=== PATIENT | female | born 1970 | race Caucasian/White ===

== ENCOUNTER 2017-02-23 15:11 | Emergency (ER) | payer OTHER ==
[2017-02-23 15:52] VITALS: BP 139/82
--- NOTE | 2017-02-23 16:34 | UC ---
Throat Pain/Nasal Hector HPI - HPI Summary HPI Summary: 1.5 WEEKS OF SINUS PRESSURE CONGESTION & RIGHT EAR PAIN. NO FEVER NO SORE THROAT. 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 Hx Last Menstrual Period: 01/22/17 Onset/Duration: Gradual Onset, Lasting Weeks, Still Present Severity: Moderate Cough: Nonproductive Associated Signs & Symptoms: Positive: Hoarseness, Sinus Discomfort, Nasal Discharge, Fever - Epiglottits Risk Factors Epiglottis Risk Factors: Negative - Allergies/Home Medications Allergies/Adverse Reactions: Allergies Allergy/AdvReac Type Severity Reaction Status Date / Time Red Dye Allergy Severe hives/ Verified 02/23/17 15:51 throat closes Latex Allergy Mild Rash Verified 02/23/17 15:51 PMH/Surg Hx/FS Hx/Imm Hx Previously Healthy: Yes Endocrine History Of: Denies: Diabetes Cardiovascular History Of: Denies: Cardiac Disorders, Hypertension Respiratory History Of: Reports: Asthma - Surgical History Surgical History: Yes Surgery Procedure, Year, and Place: ob surgery - Family History Known Family History: Positive: Respiratory Disease - MOTHER COPD - Social History Occupation: Employed Full-time Lives: With Family Alcohol Use: Occasionally Substance Use Type: None Smoking Status (MU): Never Smoked Tobacco Review of Systems Constitutional: Negative Skin: Negative Eyes: Negative ENT: Ear Ache, Nasal Discharge Respiratory: Cough Cardiovascular: Negative Gastrointestinal: Negative Genitourinary: Negative Motor: Negative Neurovascular: Negative Musculoskeletal: Negative Neurological: Negative Psychological: Negative All Other Systems Reviewed And Are Negative: Yes Physical Exam Triage Information Reviewed: Yes Appearance: Well-Appearing, No Pain Distress, Well-Nourished Vital Signs: Initial Vital Signs Temp 99.3 F 02/23/17 15:47 Pulse 82 02/23/17 15:47 Resp 16 02/23/17 15:47 BP 139/82 02/23/17 15:47 Pulse Ox 97 02/23/17 15:47 Vital Signs Reviewed: Yes Eye Exam: Normal ENT: Positive: Pharyngeal erythema, TM bulging, TM dull, TM red - RIGHT, Other: - EDEMA RIGHT EAC Dental Exam: Normal Neck exam: Normal Neck: Positive: Supple, Nontender, No Lymphadenopathy Respiratory Exam: Normal Respiratory: Positive: Chest non-tender, Lungs clear, Normal breath sounds, No respiratory distress, No accessory muscle use Cardiovascular Exam: Normal Cardiovascular: Positive: RRR, No Murmur Abdominal Exam: Normal Abdomen Description: Positive: Nontender, No Organomegaly Musculoskeletal Exam: Normal Musculoskeletal: Positive: Strength Intact Neurological Exam: Normal Psychological Exam: Normal Psychological: Positive: Normal Response To Family Skin Exam: Normal Throat Pain/Nasal Course/Dx - Differential Dx/Diagnosis Differential Diagnosis/HQI/PQRI: Otitis Media, Pharyngitis, Sinusitis, URI Provider Diagnoses: SINUSITIS. RIGHT EAR OTITIS MEDIA/EXTERNA Discharge - Discharge Plan Condition: Stable Disposition: HOME Prescriptions: Amoxicillin/Clavulanate TAB* [Augmentin TAB 875*] 875 mg PO BID #20 tab Ciproflox/Dexameth OTIC.SUSP* [Ciprodex OTIC.SUSP*] 4 drop .SEE ORDER TID #1 btl Patient Education Materials: Sinusitis (ED), Otitis Externa (ED), Otitis Media (ED) Referrals: Ronaldo Nguyen MD [Primary Care Provider] -
== END 2017-02-23 16:30 | disposition home or self-care (01) ==
LOC: UCCORT 15:11
DX: J32.9 Chronic sinusitis, unspecified (principal); H66.91 Otitis media, unspecified, right ear; H60.91 Unspecified otitis externa, right ear; I10 Essential (primary) hypertension; J45.909 Unspecified asthma, uncomplicated
CPT/HCPCS: 99212; G0463

== ENCOUNTER 2017-09-28 11:05 | Emergency (ER) | payer OTHER ==
[2017-09-28 12:09] VITALS: BP 126/85
--- NOTE | 2017-09-28 12:31 | ED ---
Throat Pain/Nasal Congestion - HPI Summary HPI Summary: 47 yr old female with the complaint of sore throat, runny nose, coughing. Onset of symptoms about 2.5 weeks ago. She has been having sinus pressure in frontal and maxillary area progressively worse for the past week with persistent post nasal drip. She states she has a history of asthma but does not feel SOB of wheezing. She has a daughter with URI symptoms that have started more recently. - History of Current Complaint Chief Complaint: UCRespiratory Time Seen by Provider: 09/28/17 12:01 - Allergies/Home Medications Allergies/Adverse Reactions: Allergies Allergy/AdvReac Type Severity Reaction Status Date / Time Red Dye Allergy Severe hives/ Verified 09/28/17 12:03 throat closes Latex Allergy Mild Rash Verified 09/28/17 12:03 Home Medications: Home Medications Albuterol 2.5MG/3ML (0.083%)* [Ventolin 2.5 MG/3 ML NEB.FABIAN*] 2.5 mg INH Q6H PRN 09/28/17 [History Confirmed 09/28/17] [id number] [Nyquil Severe Cold/Flu 5-6.25-10-325 mg/15Ml] 1 liq PO BEDTIME PRN 09/28/17 [History Confirmed 09/28/17] PMH/Surg Hx/FS Hx/Imm Hx Endocrine/Hematology History: Denies: Hx Diabetes Cardiovascular History: Denies: Hx Hypertension Respiratory History: Reports: Hx Asthma - Surgical History Surgery Procedure, Year, and Place: ob surgery Infectious Disease History: No Infectious Disease History: Denies: Traveled Outside the [place] in Last 30 Days - Family History Known Family History: Positive: Respiratory Disease - MOTHER COPD - Social History Alcohol Use: Occasionally Substance Use Type: Reports: None Smoking Status (MU): Never Smoked Tobacco Review of Systems Constitutional: Negative Positive: Nasal Discharge Positive: Shortness Of Breath, Cough All Other Systems Reviewed And Are Negative: Yes Physical Exam Triage Information Reviewed: Yes Vital Signs On Initial Exam: Initial Vitals Temp Pulse Resp BP Pulse Ox 98.7 F 76 20 126/85 100 09/28/17 12:04 09/28/17 12:04 09/28/17 12:04 09/28/17 12:04 09/28/17 12:04 Vital Signs Reviewed: Yes Appearance: Positive: Well-Appearing, No Pain Distress Skin: Positive: Warm Head/Face: Positive: Normal Head/Face Inspection Eyes: Positive: EOMI ENT: Positive: Normal ENT inspection, Pharyngeal erythema, TMs normal, Other - bilateral maxillary and frontal tenderness to percussion.. Negative: Muffled voice, Hoarse voice Neck: Positive: Nontender Respiratory/Lung Sounds: Positive: Clear to Auscultation, Breath Sounds Present Cardiovascular: Positive: RRR. Negative: Murmur Abdomen Description: Positive: Nontender Musculoskeletal: Positive: Strength/ROM Intact Neurological: Positive: Sensory/Motor Intact, Alert, Oriented to Person Place, Time, CN Intact II-III Psychiatric: Positive: Normal - [place] Coma Scale Best Eye Response: 4 - Spontaneous Best Motor Response: 6 - Obeys Commands Best Verbal Response: 5 - Oriented Diagnostics - Vital Signs Vital Signs Temp Pulse Resp BP Pulse Ox 09/28/17 12:04 98.7 F 76 20 126/85 100 - Laboratory Lab Statement: Any lab studies that have been ordered have been reviewed, and results considered in the medical decision making process. EENT Course/Dx - Course Course Of Treatment: 47 yr old with bilateral sinus tendernss. Will cover with Augmentin. DC home - Diagnoses Provider Diagnoses: Sinusitis Discharge - Discharge Plan Condition: Good Disposition: HOME Prescriptions: Amoxicillin/Clavulanate TAB* [Augmentin TAB 875*] 875 mg PO BID #20 tab Patient Education Materials: Sinusitis (ED) Referrals: Ronaldo Nguyen MD [Primary Care Provider] -
== END 2017-09-28 12:35 | disposition home or self-care (01) ==
LOC: UCCORT 11:05
DX: J32.9 Chronic sinusitis, unspecified (principal); J45.909 Unspecified asthma, uncomplicated
CPT/HCPCS: 99212; G0463

== ENCOUNTER 2017-10-27 17:10 | Emergency (ER) | payer OTHER ==
[2017-10-27 18:00] VITALS: BP 149/74
--- NOTE | 2017-10-27 18:27 | ED ---
Throat Pain/Nasal Congestion - HPI Summary HPI Summary: 47 yr old female with Sinus pressure, left ear pain that feels like pressure and popping. The patient complains of cough as well and discomfort in back and ribs with coughing. She states she was on antibiotics last month and got better but now for about a week she has had symptoms. - History of Current Complaint Chief Complaint: UCGeneralIllness Time Seen by Provider: 10/27/17 18:12 - Allergies/Home Medications Allergies/Adverse Reactions: Allergies Allergy/AdvReac Type Severity Reaction Status Date / Time Red Dye Allergy Severe hives/ Verified 10/27/17 18:00 throat closes Latex Allergy Mild Rash Verified 10/27/17 18:00 PMH/Surg Hx/FS Hx/Imm Hx Endocrine/Hematology History: Denies: Hx Diabetes Cardiovascular History: Denies: Hx Hypertension Respiratory History: Reports: Hx Asthma - Surgical History Surgery Procedure, Year, and Place: ob surgery Infectious Disease History: No Infectious Disease History: Denies: Traveled Outside the [place] in Last 30 Days - Family History Known Family History: Positive: Respiratory Disease - MOTHER COPD - Social History Alcohol Use: Occasionally Substance Use Type: Reports: None Smoking Status (MU): Never Smoked Tobacco Review of Systems Positive: Fatigue. Negative: Fever, Chills Positive: Sore Throat, Ear Ache, Nasal Discharge Positive: Cough All Other Systems Reviewed And Are Negative: Yes Physical Exam Triage Information Reviewed: Yes Vital Signs On Initial Exam: Initial Vitals Temp Pulse Resp BP Pulse Ox 98.6 F 70 17 149/74 100 10/27/17 17:56 10/27/17 17:56 10/27/17 17:56 10/27/17 17:56 10/27/17 17:56 Vital Signs Reviewed: Yes Appearance: Positive: Well-Appearing, No Pain Distress Skin: Positive: Warm, Skin Color Reflects Adequate Perfusion Head/Face: Positive: Normal Head/Face Inspection Eyes: Positive: EOMI ENT: Positive: Normal ENT inspection, Pharynx normal, TM dull - left, TM red - left, Sinus tenderness Respiratory/Lung Sounds: Positive: Clear to Auscultation, Breath Sounds Present Cardiovascular: Positive: RRR. Negative: Murmur Abdomen Description: Positive: Nontender Musculoskeletal: Positive: Strength/ROM Intact Neurological: Positive: Sensory/Motor Intact, Alert, Oriented to Person Place, Time, CN Intact II-III Psychiatric: Positive: Normal - [place] Coma Scale Best Eye Response: 4 - Spontaneous Best Motor Response: 6 - Obeys Commands Best Verbal Response: 5 - Oriented Diagnostics - Vital Signs Vital Signs Temp Pulse Resp BP Pulse Ox 10/27/17 17:56 98.6 F 70 17 149/74 100 - Laboratory Lab Statement: Any lab studies that have been ordered have been reviewed, and results considered in the medical decision making process. EENT Course/Dx - Course Course Of Treatment: 47 yr old with left OM and sinusitis. Rx with augmentin. FU with PMD. - Diagnoses Provider Diagnoses: Sinusitis, Otitis media, Hypertension Discharge - Discharge Plan Condition: Good Disposition: HOME Prescriptions: Amoxicillin/Clavulanate TAB* [Augmentin TAB 875*] 875 mg PO BID #20 tab Patient Education Materials: Sinusitis (ED), Otitis Media (ED), Hypertension ( ED) Referrals: Ronaldo Nguyen MD [Primary Care Provider] - 2 Days
== END 2017-10-27 18:24 | disposition home or self-care (01) ==
LOC: UCCORT 17:10
DX: J32.9 Chronic sinusitis, unspecified (principal); H66.92 Otitis media, unspecified, left ear; I10 Essential (primary) hypertension; Z72.89 Other problems related to lifestyle
CPT/HCPCS: 99212; G0463

== ENCOUNTER 2018-03-01 09:03 | Emergency (ER) | payer OTHER ==
[2018-03-01 09:52] VITALS: BP 138/83
--- NOTE | 2018-03-01 10:23 | UC ---
Throat Pain/Nasal Hector HPI - HPI Summary HPI Summary: Pt c/o left eye redness and "itchiness", left ear pain and left side nasal congestion, and sinus pressure. Pt states it has been going on for a week and a half. - History of Current Complaint Chief Complaint: UCGeneralIllness Stated Complaint: EYE/EAR COMPLAINT Time Seen by Provider: 03/01/18 10:11 Hx Obtained From: Patient Hx Last Menstrual Period: 02/13/18 ?: No Onset/Duration: Gradual Onset, Lasting Days - 10, Still Present, Worse Since - onset Severity: Moderate Pain Intensity: 8 Cough: Nonproductive Associated Signs & Symptoms: Positive: Sinus Discomfort - Epiglottits Risk Factors Epiglottis Risk Factors: Negative - Allergies/Home Medications Allergies/Adverse Reactions: Allergies Allergy/AdvReac Type Severity Reaction Status Date / Time MS Red Dye [Red Dye] Allergy Severe hives/ Verified 10/27/17 18:00 throat closes MS Latex [Latex] Allergy Mild Rash Verified 10/27/17 18:00 PMH/Surg Hx/FS Hx/Imm Hx Previously Healthy: Yes - Surgical History Surgical History: Yes Surgery Procedure, Year, and Place: D&C. BONE SPUR RIGHT FOOT. - Family History Known Family History: Positive: Respiratory Disease - MOTHER COPD - Social History Occupation: Employed Full-time Lives: With Family Alcohol Use: Occasionally Substance Use Type: None Smoking Status (MU): Never Smoked Tobacco Have You Smoked in the Last Year: No - Immunization History Most Recent Influenza Vaccination: not this season Review of Systems Constitutional: Fatigue Skin: Negative Eyes: Eye Redness ENT: Sinus Congestion, Sinus Pain/Tenderness Respiratory: Cough Cardiovascular: Negative Gastrointestinal: Negative Genitourinary: Negative Motor: Negative Neurovascular: Negative Musculoskeletal: Negative Neurological: Negative Psychological: Negative Is Patient Immunocompromised?: No All Other Systems Reviewed And Are Negative: Yes Physical Exam Triage Information Reviewed: Yes Appearance: Ill-Appearing Vital Signs: Initial Vital Signs Temp 98.1 F 03/01/18 09:42 Pulse 70 03/01/18 09:42 Resp 18 03/01/18 09:42 BP 138/83 03/01/18 09:42 Pulse Ox 98 03/01/18 09:42 Vital Signs Reviewed: Yes Eye Exam: Normal ENT Exam: Other ENT: Positive: Nasal congestion, Sinus tenderness - left maxillary Dental Exam: Normal Neck exam: Normal Respiratory Exam: Normal Cardiovascular Exam: Normal Musculoskeletal Exam: Normal Neurological Exam: Normal Psychological Exam: Normal Skin Exam: Normal Throat Pain/Nasal Course/Dx - Differential Dx/Diagnosis Differential Diagnosis/HQI/PQRI: Influenza, Sinusitis, URI Provider Diagnoses: sinusitis. left ear pain. left eye redness Discharge - Sign-Out/Discharge Documenting (check all that apply): Discharge/Admit/Transfer - Discharge Plan Condition: Stable Disposition: HOME Prescriptions: Amoxicillin PO (*) [Amoxicillin 875 MG (*)] 875 mg PO Q12H #20 tab Cetirizine* [ZyrTEC 10 MG TAB*] 10 mg PO DAILY #10 tab predniSONE TAB* [Deltasone TAB*] 20 mg PO DAILY #4 tab Patient Education Materials: Sinusitis (ED), Earache (ED) Referrals: Ronaldo Nguyen MD [Primary Care Provider] - If Needed Additional Instructions: Please follow up with your PCP or return to clinic as needed. - Billing Disposition and Condition Condition: STABLE Disposition: HOME
== END 2018-03-01 10:38 | disposition home or self-care (01) ==
LOC: UCCORT 09:03
DX: J32.9 Chronic sinusitis, unspecified (principal); H92.02 Otalgia, left ear; H57.9 Unspecified disorder of eye and adnexa
CPT/HCPCS: 99212; G0463